=== PATIENT | male | born 1985 | race Caucasian/White ===

== ENCOUNTER → 2017-11-17 09:33 | Outpatient (CLI) | payer SELFPAY ==
--- NOTE | 2017-11-17 09:43 | DI.US.S_ITS ---
PROCEDURE: US ABDOMEN LIMITED INDICATIONS: PRE-EMPLOYMENT PHYSICAL TECHNIQUE: Real-time focused scanning was performed of the abdomen, with image documentation. COMPARISON: None. FINDINGS: Liver measures 15.7 cm in length. Normal liver parenchymal echotexture is seen. No discrete hepatic lesion. Gallbladder contains no gallstones. No gallbladder wall thickening or pericholecystic fluid. No sonographic Sevilla's sign. Common bile duct measures 3.2 mm in diameter and is within normal limits. No intrahepatic biliary ductal dilatation. The visualized portion of pancreas shows no gross abnormality. Spleen is within normal limits and measures 11.2 cm in length. IVC is normal in size and is patent. IMPRESSION: Unremarkable limited ultrasound examination of abdomen. Dictated by: Jese Trujillo M.D. on 11/17/2017 at 10:41 Approved by: Jese Trujillo M.D. on 11/17/2017 at 10:43
--- NOTE | 2017-11-17 09:43 | DI.RAD.S_ITS ---
PROCEDURE: XR CHEST 2V INDICATIONS: pre-employment physical TECHNIQUE: 2 views of the chest were acquired. COMPARISON: None. FINDINGS: Surgical changes and devices: None. Lungs and pleura: No pleural effusions or pneumothorax. Lungs are clear. Mediastinum: Mediastinal contours are normal. Heart size is normal. Bones and chest wall: No suspicious bony abnormalities. Soft tissues appear unremarkable. IMPRESSION: Negative exam. Dictated by: Marin Johnson M.D. on 11/17/2017 at 10:19 Approved by: Marin Johnson M.D. on 11/17/2017 at 10:52
== END ==
PROVIDERS: Family Provider Family Medicine; PCP Family Medicine; Visit Provider Physician Assistant
DX: Z02.1 Encounter for pre-employment examination (principal)
CPT/HCPCS: 71046; 76705

== ENCOUNTER → 2020-04-23 12:45 | Outpatient (CLI) | payer SELFPAY ==
[2020-04-23 13:23] LABS: Add Manual Diff / Slide Review NO; Basophils Absolute Auto 0 /uL (0-100); Basophils Percent Auto 0.5 % (0-2); Eosinophils Absolute Auto 100 /uL (0-450); Eosinophils Percent Auto 2.3 % (2-4); Hematocrit 44.5 % (41-53); Hemoglobin 14.9 g/dL (13.5-17.5); Lymphocytes Absolute Auto 1500 /uL (1100-4500); Lymphocytes Percent Auto 28.8 % (25-40); Mean Corpuscular HGB Conc 33.4 % (30-36); Mean Corpuscular Hemoglobin 29.7 PG (26-34); Mean Corpuscular Volume 88.8 fL (80-100); Monocytes Absolute Auto 600 /uL (0-900); Monocytes Percent Auto 12.2 % (3-14); Neutrophils Absolute Auto 2800 /uL (1500-7000); Neutrophils Percent Auto 56.2 % (50-75); Platelet Count 259 X10^3/uL (150-400); Red Blood Cell Count 5.01 X10^6/uL (4.5-5.9); Red Cell Distribution Width 13.2 % (11.6-14.8); White Blood Cell Count 5.1 X10^3/uL (4.5-11.0)
== END ==
PROVIDERS: Family Provider Family Medicine; PCP Family Medicine; Referring Provider Family Medicine; Visit Provider Family Medicine
DX: R10.9 Unspecified abdominal pain (principal); K92.1 Melena
CPT/HCPCS: 36415; 85025

== ENCOUNTER → 2020-09-07 11:01 | Outpatient (CLI) | payer OTHER, SELFPAY ==
--- NOTE | 2020-09-07 | DI.RAD.S_ITS ---
PROCEDURE: XR KNEE LT 3V INDICATIONS: LEFT KNEE PAIN WITH WEIGHT BEARING TECHNIQUE: 3 views of the knee were acquired. COMPARISON: None. FINDINGS: Bones: No fractures or dislocations. No suspicious bony lesions. Scattered degenerative subchondral sclerosis and spurring. No definite joint space narrowing Soft tissues: No joint effusion. No suspicious soft tissue calcifications. Mild anterior soft tissue swelling. IMPRESSION: Mild anterior soft tissue swelling. Degenerative spurring and sclerosis. If the patient's pain or other symptoms persist, consider further evaluation with MRI Dictated by: Marin Johnson M.D. on 09/07/2020 at 11:47 Approved by: Marin Johnson M.D. on 09/07/2020 at 11:49
== END ==
PROVIDERS: Family Provider Family Medicine; PCP Family Medicine; Referring Provider Family Medicine; Visit Provider Family Medicine
DX: M25.562 Pain in left knee (principal); M79.89 Other specified soft tissue disorders
CPT/HCPCS: 73562